=== PATIENT | male | born 1970 | race Caucasian/White ===

== ENCOUNTER 2023-03-10 14:27 | Emergency (ER) | payer OTHER ==
[~2023-03-10] VITALS: Ht 165.1 cm; Wt 71.2 kg
[~2023-03-10 14:27] MED LIST: ALDACTONE25 MG; CIPRO500 MG PO; COREG CR20 MG; IBUPROFEN800 MG PO
[2023-03-10] MEDS ORDERED: CARVEDILOL25 MG (14:48)
== END 2023-03-10 16:39 | disposition home or self-care (01) ==
LOC: ER 14:27
DX: B00.1 Herpesviral vesicular dermatitis (principal); R53.81 Other malaise

== ENCOUNTER 2023-04-12 09:53 | Emergency (ER) | payer OTHER ==
[~2023-04-12] VITALS: Ht 167.6 cm; Wt 65.8 kg
[~2023-04-12 09:53] MED LIST changes: +CARVEDILOL25 MG
[2023-04-12] MEDS ORDERED: ADULT LOW DOSE81 M1 PO (10:22)
[2023-04-12] MEDS ORDERED: ALDACTONE25 MG PO (10:22)
== END 2023-04-12 12:53 | disposition home or self-care (01) ==
LOC: ER 09:53
DX: L30.8 Other specified dermatitis (principal)

== ENCOUNTER 2023-06-19 11:04 | Emergency (ER) | payer OTHER ==
[~2023-06-19] VITALS: Ht 170.2 cm; Wt 81.6 kg
[~2023-06-19 11:04] MED LIST changes: +ADULT LOW DOSE81 M1 PO; +ALDACTONE25 MG PO
[2023-06-19] MEDS ORDERED: CLOTRIMAZOLE-BE15 GM TOP (12:12)
[2023-06-19] MEDS ORDERED: FLUCONAZOLE150 MG PO (12:12)
== END 2023-06-19 12:51 | disposition home or self-care (01) ==
LOC: ER 11:04
DX: B99.8 Other infectious disease (principal)